=== PATIENT | female | born 1960 | race Caucasian/White ===

== ENCOUNTER 2016-12-01 15:24 | Outpatient (CLI) | payer OTHER | END 2016-12-01 15:25 | disposition home or self-care (01) | LOC: SPVWC 15:24 | PROVIDERS: ATTEND Specialist | DX: R92.8 Other abnormal and inconclusive findings on diagnostic imaging of breast (principal) | CPT/HCPCS: 77066; G0204 ==

== ENCOUNTER 2016-12-08 12:04 | Outpatient (CLI) | payer OTHER ==
--- NOTE | 2016-12-08 13:35 | Ultrasound Report ---
BILATERAL DIGITAL DIAGNOSTIC MAMMOGRAM with CAD 12/01/16 and RIGHT BREAST ULTRASOUND: 12/08/16 CLINICAL: History of right breast cysts. COMPARISON:03/30/15 screening mammogram and 04/06/15 right diagnostic mammogram and right breast ultrasound. FINDINGS: The breasts are heterogeneously dense, which may obscure small masses.No mass, architectural distortion or suspicious calcifications.Two circumscribed upper-outer densities in the right breast are smaller compared to the previous mammogram. Ultrasound of the upper outer right breast was performed and demonstrated normal structures with no mass, cyst or shadowing. No intramammary lymph nodes identified. IMPRESSION: Negative mammogram and negative right breast ultrasound. The two circumscribed densities in the upper-outer right breast are probably small lymph nodes which are smaller compared to the previous exam. BI-RADS CATEGORY: 2 -- Benign RECOMMENDATION: Routine mammographic screening in one year. COMMENT: Patient follow-up letters are generated by our [employer] application.
== END 2016-12-08 12:05 | disposition home or self-care (01) ==
LOC: SPVWC 12:04
PROVIDERS: ATTEND Specialist
DX: R92.8 Other abnormal and inconclusive findings on diagnostic imaging of breast (principal)